=== PATIENT | male | born 1960 | race American Indian/Alaskan Native ===

== ENCOUNTER 2017-02-16 16:50 | Emergency (ER) | payer MEDICAID ==
[2017-02-16 16:52] VITALS: BMI 32.5
--- NOTE | 2017-02-16 17:09 | ED PDOC ---
Arrival/HPI - General Chief Complaint: Chest Pain Time Seen by Provider: 02/16/17 16:51 Historian: Patient - History of Present Illness Narrative History of Present Illness (Text): 02/16/17 17:07 Patient is a 56 year old male smoker who presents to the emergency department with left sided chest pain that began last night at work. He states the pain is worse with movement in his left chest, shoulder and left back. Patient reports it radiated to the back a few hours ago "when I turned". Denies numbness to the arms. He reports he took Tylenol with no improvement. He denies chest pain or pressure with exertion, ONLY WITH MOVEMENTS of his left arm or rotating. He states he lifts heavy boxes at work although denies any specific injury. He denies nausea or diaphoresis. Denies neck pain or pain radiating down arm. Denies arm or leg swelling. Denies pleuritic pain. He is a smoker. Denies any family history of known NE, sudden , or CAD to his knowledge. Time/Duration: 24 hours Symptom Onset: Gradual Symptom Course: Unchanged Context: Work Associated Symptoms (Text): None Past Medical History - Provider Review Nursing Documentation Reviewed: Yes - Infectious Disease Hx of Infectious Diseases: None - Endocrine/Metabolic Hx Diabetes Mellitus Type 2: Yes - Psychiatric Hx Substance Use: No - Surgical History Hx Cholecystectomy: Yes - Anesthesia Hx Anesthesia Reactions: No Hx Malignant Hyperthermia: No Family/Social History - Physician Review Nursing Documentation Reviewed: Yes Family/Social History: Unknown Family HX Smoking Status: Current Some Days Smoker Hx Alcohol Use: Yes Frequency of alcohol use: Socially Hx Substance Use: No Allergies/Home Meds Allergies/Adverse Reactions: Allergies No Known Allergies Allergy (Verified 02/16/17 16:52) Home Medications: Home Meds Medication Instructions Recorded Confirmed metFORMIN [glucOPHAGE] 500 mg PO BID 02/16/17 02/16/17 Review of Systems - Review of Systems Constitutional: absent: Fatigue, Fevers Eyes: absent: Vision Changes, Photophobia, Eye Pain ENT: absent: Hearing Changes, TMJ Pain, Voice Changes, Rhinorrhea Respiratory: absent: SOB, Wheezing Cardiovascular: Chest Pain. absent: Palpitations, Edema, JIMENEZ, Orthopnea Gastrointestinal: absent: Abdominal Pain, Nausea, Vomiting Genitourinary Male: absent: Dysuria, Frequency Musculoskeletal: Back Pain, Other (left shoulder pain). absent: Neck Pain Skin: absent: Rash, Skin Lesions Neurological: absent: Headache, Focal Weakness, Speech Changes Endocrine: absent: Diaphoresis, Polyuria Psychiatric: absent: Depression Physical Exam - Physical Exam Narrative Physical Exam (Text): Head: Atraumatic. Normocephalic. Eyes: PERRL. EOMI. Conjunctivae are not pale. ENT: Mucous membranes are moist and intact. Oropharynx is clear and symmetric. Neck: Supple. Full ROM. No JVD. No lymphadenopathy. Cardiovascular: Regular rate. Regular rhythm. No murmurs, rubs, or gallops. Distal pulses are 2+ and symmetric. Pulmonary/Chest: Palpable anterior left focal chest wall tenderness. No edema or crepitus. This left anterior chest wall pain is also reproduced with range of motion of left shoulder and rotating at torso. No evidence of respiratory distress. Clear to auscultation bilaterally. No wheezing, rales or rhonchi. Abdominal: Soft and non-distended. There is no tenderness. No rebound, guarding, or rigidity. No organomegaly. Good bowel sounds. Back: No CVA tenderness. Palpable tenderness to left scapular region with no erythema or edema. No midline thoracic or cervical pain. Extremities: No edema. No cyanosis. No clubbing. Full range of motion in all extremities. No calf tenderness. There is pain to left shoulder and anterior left chest wall with range of motion. Skin: Skin is warm and dry. No petechiae. No purpura. No vesicular rash. Neurological: Alert, awake, and oriented to person, place, time, and situation. Normal speech. Motor and sensory exam intact. Psychiatric: Good eye contact. Normal interaction, affect, and behavior. 02/16/17 22:37 Vital Signs Reviewed: Yes Vital Signs Temp Pulse Resp BP Pulse Ox 02/16/17 20:57 60 16 147/88 95 02/16/17 19:36 55 L 18 125/70 99 02/16/17 18:00 52 L 15 118/71 97 02/16/17 16:50 97.9 F 66 18 140/86 97 Temperature: Afebrile Blood Pressure: Normal Pulse: Regular Respiratory Rate: Normal Appearance: Positive for: Well-Appearing, Non-Toxic, Comfortable Pain Distress: Mild Mental Status: Positive for: Alert and Oriented X 3 Medical Decision Making ED Course and Treatment: Differential Diagnosis included but are not limited to: muscle strain, atypical chest pain Plan: Will get CCU workup and Chest X-ray. Progress Notes: Patient's pain is clearly palpable, worse with movements and with ranging his shoulder. He denies trauma but states pain is worse when lifting, and on exam when he sits up from stretcher or rotates his torso he has pain in left chest and shoulder, this improves when he stays still. It is point tender. Despite noted risk factors of smoking, diabetes, his pain with serial exams is persistently palpable and worse with ROM. Pain since yesterday. Troponin unremarkable. Chest X-ray Manager Of [employer] Operations : Albino Espino MD IMPRESSION: no acute infiltrates. 02/16/17 20:34 Patient's pain is consistently reproducible, worse with movement and turning. Limitations of EKG and cardiac enzymes were reviewed with the patient although due to consistent palpable nature of his pain, today's symptoms appear to be musculoskeletal. I discussed risks of smoking as well as need for follow up with Dr. Luciana Priest for reevaluation of symptoms. Patient will be discharged with anti-inflammatories. No hypotension noted. He understands need for smoking cessation and need for close follow-up with his PMD for re-evaluation. I have stressed to him if pain is changing in character, not worse with touching or movements or associated with any dyspnea, sweats, nausea or change in pain he needs immediate re-evaluation. He states understanding for need for close follow-up as well as need for smoking cessation. Given clearly and consistently palpable nature of patient's current pain, he will be discharged with follow-up with PMD. 02/16/17 22:40 - Lab Interpretations Lab Results: 02/16/17 17:00 02/16/17 17:00 Lab Results 02/16/17 20:15: Urine Color Yellow, Urine Appearance Clear, Urine pH 6.0, Ur Specific [place] >= 1.030, Urine Protein Negative, Urine Glucose (UA) Negative, Urine Ketones Negative, Urine Blood Negative, Urine Nitrate Negative, Urine Bilirubin Negative, Urine Urobilinogen 1.0 H, Ur Leukocyte Esterase Negative 02/16/17 17:00: PT 10.7, INR 0.99, APTT 26.1, D-Dimer, Quantitative 0.44 02/16/17 17:00: Sodium 140, Potassium 4.2, Chloride 103, Carbon Dioxide 30, Anion Gap 11, BUN 12, Creatinine 0.8, Est GFR ( Amer) > 60, Est GFR (Non- Af Amer) > 60, Random Glucose 81, Calcium 9.3, Total Bilirubin 0.6, AST 57, ALT 58 H, Alkaline Phosphatase 120, Lactate Dehydrogenase 508, Total Creatine Kinase 172, Troponin I < 0.01, Total Protein 6.9, Albumin 3.8, Globulin 3.1, Albumin/Globulin Ratio 1.2 02/16/17 17:00: WBC 6.1, RBC 5.16, Hgb 13.2 L, Hct 40.9 L, MCV 79.3 L, MCH 25.6 , MCHC 32.3, RDW 14.0, Plt Count 209, MPV 10.4, Gran % 42.6 L, Lymph % (Auto) 49.1 H, [place] % (Auto) 6.1 H, Eos % (Auto) 2.0, Baso % (Auto) 0.2, Gran # 2.60, Lymph # 3.0, [place] # 0.4, Eos # 0.1, Baso # 0.01 - RAD Interpretation Radiology Orders: 02/16/17 17:07 CHEST PORTABLE [RAD] Stat Aadc Plans Staff Officer: Radiologist - EKG Interpretation EKG Interpretation (Text): 02/16/17 22:39 EKG at 19:34 sinus bracycardia rate of [address] elevations Interpreted by ED Physician: Yes Type: 12 lead EKG - Medication Orders Current Medication Orders: Discontinued Medications Aspirin (Aspirin Chewable) 81 mg PO STAT STA Stop: 02/16/17 17:28 Last Admin: 02/16/17 17:40 Dose: 81 mg - Paramibe Statement The provider has reviewed the documentation as recorded by the Lan Martinez Provider Paramibe Attestation: All medical record entries made by the Lan were at my direction and personally dictated by me. I have reviewed the chart and agree that the record accurately reflects my personal performance of the history, physical exam, medical decision making, and the department course for this patient. I have also personally directed, reviewed, and agree with the discharge instructions and disposition. Disposition/Present on Arrival - Present on Arrival Any Indicators Present on Arrival: No History of DVT/PE: No History of Uncontrolled Diabetes: No Urinary Catheter: No History of Decub. Ulcer: No History Surgical Site Infection Following: None - Disposition Have Diagnosis and Disposition been Completed?: Yes Diagnosis: Muscle strain, Chest pain Disposition: HOME/ ROUTINE Disposition Time: 20:00 Patient Plan: Discharge Condition: GOOD Discharge Instructions (ExitCare): Chest Pain (ED), Muscle Strain (ED) Additional Instructions: Rest. No heavy lifting or strenuous activity. For any chest pain with exertion, for any pain that is NOT worse when you touch the area or when you move, for any fever, any leg pain or swelling, any numbness or weakness, any arm pain or swelling, get rechecked immediately. Risks of smoking were reviewed, please discontinue. Take antiinflammatory pain medication as directed. Follow-up with Dr. Luciana Priest in 1-2 days. Prescriptions: Naproxen [Naprosyn Tab] 250 mg PO BID PRN #10 tab PRN Reason: Pain, Mild (1-3) Referrals: Luciana Priest MD [Primary Care Provider] - Follow up with primary Forms: WORK NOTE
[2017-02-16 17:18] VITALS: TEMP 97.9
[2017-02-16 17:27] LABS: ADD MANUAL DIFF? NO
[2017-02-16 17:38] LABS: ALB/GLOB RATIO 1.2 (1.1-1.8); ALKALINE PHOSPHATASE 120 U/L (38-133); ALT/SGPT 58 U/L (7-56); AST/SGOT 57 U/L (15-59); BILIRUBIN,TOTAL 0.6 mg/dL (0.2-1.3); BLOOD UREA NITROGEN 12 mg/dL (7-21); CALCIUM 9.3 mg/dL (8.4-10.5); CARBON DIOXIDE 30 mmol/L (21-33); CHLORIDE 103 mmol/L (98-107); GFR AFRICAN-AMERICAN > 60; GLUCOSE,RANDOM 81 mg/dL (70-110); POTASSIUM 4.2 mmol/L (3.6-5.0); SODIUM 140 mmol/L (132-148); TOTAL PROTEIN 6.9 g/dL (5.8-8.3)
[2017-02-16 17:47] LABS: BASO # 0.01 K/mm3 (0.0-2.0); BASO % 0.2 % (0.0-3.0); EOS # 0.1 (0.0-0.7); GRAN % 42.6 % (50.0-68.0); HEMATOCRIT 40.9 % (42.0-52.0); LYMPH % 49.1 % (22.0-35.0); MEAN CELL VOLUME 79.3 fL (80.0-105.0); MEAN CORPUSCULAR HEMOGLOBIN 25.6 pg (25.0-35.0); MEAN CORPUSCULAR HGB CONC 32.3 g/dl (31.0-37.0); MEAN PLATELET VOLUME 10.4 fl (7.0-11.0); MONO # 0.4 (0.1-0.6); MONO % 6.1 % (1.0-6.0); PLATELET COUNT 209 10^3/uL (120.0-450.0); WHITE BLOOD COUNT 6.1 10^3/ul (4.5-11.0)
[2017-02-16 17:52] LABS: TROPONIN I < 0.01 ng/mL
[2017-02-16 17:56] LABS: INR 0.99 (0.93-1.08); PARTIAL THROMBOPLASTIN TIME 26.1 Seconds (23.7-30.8)
--- NOTE | 2017-02-16 18:15 | RAD ---
HISTORY: chest pain COMPARISON: No prior. FINDINGS: LUNGS: No active pulmonary disease. PLEURA: No significant pleural effusion identified, no pneumothorax apparent. CARDIOVASCULAR: Heart is borderline/ mildly OSSEOUS STRUCTURES: Minor degenerative changes both shoulder girdles. Mild multilevel degenerative spondylosis of the thoracic spine. VISUALIZED UPPER ABDOMEN: Normal. OTHER FINDINGS: None. IMPRESSION: Enlarged no acute infiltrates.
[2017-02-16 19:13] LABS: D DIMER 0.44 mg/L FEU (0-0.50)
[2017-02-16 20:30] LABS: URINE BILIRUBIN NEGATIVE (NEGATIVE); URINE BLOOD NEGATIVE (NEGATIVE); URINE GLUCOSE (UA) NEGATIVE (NEGATIVE); URINE KETONE NEGATIVE (NEGATIVE); URINE LEUKOCYTE ESTERASE NEGATIVE Leu/uL (NEGATIVE); URINE PROTEIN NEGATIVE mg/dL (<30 mg/dL)
[2017-02-16 20:31] LABS: URINE APPEARANCE CLEAR (CLEAR); URINE COLOR YELLOW (YELLOW)
[2017-02-16 20:57] VITALS: BP 147/88; PULSE 60; RESP 16; O2SAT 95
--- NOTE | 2017-02-17 11:21 | CARD ---
APPROVED REPORT EKG Measurement Heart [id number] ID [id number] <Conclusion> Normal sinus rhythm Minimal voltage criteria for LVH, may be normal variant Borderline ECG
--- NOTE | 2017-02-17 11:21 | CARD ---
APPROVED REPORT EKG Measurement Heart [id number] <Conclusion> Sinus bradycardia Otherwise normal ECG
== END 2017-02-16 21:06 | disposition home or self-care (01) ==
LOC: MERGE 16:50 → ED 16:50
DX: R07.9 Chest pain, unspecified (principal); T14.8 Other injury of unspecified body region; X58.XXXA Exposure to other specified factors, initial encounter; F17.210 Nicotine dependence, cigarettes, uncomplicated